=== PATIENT | female | born 1995 | race Two or more races ===

== ENCOUNTER → 2021-11-18 | Outpatient (CLI) | payer MEDICAID ==
[2021-11-18 15:30] LABS: BASO % 0.4 % (0.0-1.0); EOS # 0.1 10^3/uL (0.0-0.5); EOS % 1.2 % (0.0-3.0); HEMATOCRIT 36.1 % (36.0-47.0); HEMOGLOBIN 12.4 g/dl (12.0-15.5); LYMPH # 1.2 10^3/uL (1.5-5.0); LYMPH % 21.2 % (24.0-44.0); MEAN CORPUSCULAR HEMOGLOBIN 32.1 pg (27.0-33.0); MEAN CORPUSCULAR HGB CONC 34.3 g/dl (32.0-36.5); MEAN CORPUSCULAR VOLUME 93.5 fl (80.0-96.0); MONO # 0.5 10^3/uL (0.0-0.8); MONO % 7.9 % (2.0-8.0); NEUTROPHILS # 3.9 10^3/uL (1.5-8.5); NEUTROPHILS % 68.8 % (36.0-66.0); PLATELET COUNT, AUTOMATED 188 10^3/uL (150-450); RED BLOOD COUNT 3.86 10^6/uL (4.00-5.40); WHITE BLOOD COUNT 5.7 10^3/uL (4.0-10.0)
[2021-11-18 16:46] LABS: HIV 1&2 SCREEN CENTAUR NEGATIVE (NEGATIVE)
[2021-11-18 16:47] LABS: GC DNA AMPLIFICATION NEGATIVE (NEGATIVE)
== END ==
LOC: M PLALAB 11:29
PROVIDERS: ATTEND Specialist
DX: Z34.82 Encounter for supervision of other normal pregnancy, second trimester (principal); Z3A.00 Weeks of gestation of pregnancy not specified

== ENCOUNTER → 2021-12-09 | Outpatient (CLI) | payer MEDICAID | LOC: M WHC 07:08 | PROVIDERS: ATTEND Obstetrics & Gynecology | DX: Z34.03 Encounter for supervision of normal first pregnancy, third trimester (principal); Z3A.30 30 weeks gestation of pregnancy ==

== ENCOUNTER → 2021-12-15 | Outpatient (CLI) | payer MEDICAID ==
[2021-12-15 13:48] LABS: HEMATOCRIT 32.5 % (36.0-47.0); HEMOGLOBIN 11.1 g/dl (12.0-15.5); MEAN CORPUSCULAR HGB CONC 34.2 g/dl (32.0-36.5); MEAN CORPUSCULAR VOLUME 93.7 fl (80.0-96.0); PLATELET COUNT, AUTOMATED 168 10^3/uL (150-450); RED BLOOD COUNT 3.47 10^6/uL (4.00-5.40); WHITE BLOOD COUNT 5.8 10^3/uL (4.0-10.0)
== END ==
LOC: M PLALAB 08:46
PROVIDERS: ATTEND Specialist
DX: Z36.89 Encounter for other specified antenatal screening (principal)

== ENCOUNTER → 2022-01-21 | Outpatient (REF) | payer MEDICAID | LOC: M SFHCWAGY 12:43 | PROVIDERS: ATTEND Specialist | DX: Z36.85 Encounter for antenatal screening for Streptococcus B (principal); Z3A.00 Weeks of gestation of pregnancy not specified ==

== ENCOUNTER 2022-02-14 05:42 | Inpatient (IN) | payer OTHER, MEDICAID ==
[~2022-02-14] VITALS: Ht 170.2 cm; Wt 185.0 kg
[2022-02-14] VITALS (8 sets, daily range): BP systolic 112–139; BP diastolic 56–84
[2022-02-14] MEDS ORDERED: OXYTOCIN 30 UNITS IN 0.9% NaCl 500ML IV BAG (J2590) As Ordered ONE (05:49)
[2022-02-14] MEDS ORDERED: OXYTOCIN INJ 10 UNITS/ML VIAL (J2590) As Ordered ONE (05:52)
[2022-02-14] MEDS ORDERED: LIDOCAINE 1% MDV 20ML VIAL As Ordered ONE (06:05)
[2022-02-14] MEDS ORDERED: OXYTOCIN INJ 10 UNITS/ML VIAL (J2590) IM ONE (06:05)
[2022-02-14 06:17] LABS: CORD GAS ABE V -3.1; CORD GAS HCO3 V 21.2 MEQ/L; CORD GAS O2 SAT V 79.1 %; CORD GAS PCO2 V 36.3 mmHg; CORD GAS PH V 7.385 UNITS; CORD GAS PO2 V 33.1 mmHg; CORD GAS SBC V 21.4 MEQ/L; CORD GAS TCO2 V 22.3 MEQ/L
[2022-02-14] MEDS ORDERED: LIDOCAINE 1% MDV 20ML VIAL INFIL PRN (06:50)
[2022-02-14] MEDS ORDERED: ACETAMINOPHEN 500 MG TAB PO PRN (07:05)
[2022-02-14] MEDS ORDERED: DOCUSATE SODIUM 100MG CAPSULE PO PRN (07:05)
[2022-02-14] MEDS ORDERED: RHOGAM 300 MCG (1500 IU) INJ (J2790) IM SCH (07:05)
[2022-02-14] MEDS ORDERED: ANUSOL HC CREAM 30GM TOP PRN (07:05)
[2022-02-14] MEDS ORDERED: METHYLERGONOVINE MALEATE 0.2 MG TAB PO PRN (07:05)
[2022-02-14] MEDS ORDERED: ACETAMINOPHEN TAB 650MG DOSE (2X325MG) PO PRN (07:05)
[2022-02-14] MEDS: PRENATAL VITAMINS CHEWABLE TABLET PO SCH (10:04)
[2022-02-14] MEDS: IBUPROFEN 800 MG TAB PO PRN (10:05)
[2022-02-14] MEDS: IBUPROFEN 600MG TAB PO PRN (20:31)
[2022-02-15] MEDS ORDERED: UNRESOLVED CLARIFICATION ENTRY XX SCH (00:01)
[2022-02-15 06:13] VITALS: BP 113/64
[2022-02-15 06:14] VITALS: BP 113/64
[2022-02-15] MEDS: PRENATAL VITAMINS CHEWABLE TABLET PO SCH (09:01)
[2022-02-15] MEDS: IBUPROFEN 600MG TAB PO PRN ×2 (14:58→20:47)
[2022-02-15 18:00] VITALS: BP_SYST 111; BP_SYST 129; BP_DIAS 66; BP_DIAS 71
[2022-02-15] MEDS: DIBUCAINE 1% OINTMENT 30GM TOP PRN (20:49)
[2022-02-16 06:00] VITALS: BP 135/83
[2022-02-16] MEDS: PRENATAL VITAMINS CHEWABLE TABLET PO SCH (08:03)
[2022-02-16] MEDS ORDERED: MEASLES,MUMPS,RUBELLA VACCINE INJ (MMR-II) (90707) SC ONE (09:00)
[2022-02-16] MEDS: IBUPROFEN 800 MG TAB PO PRN (15:11)
[2022-02-16] MEDS: DIBUCAINE 1% OINTMENT 30GM TOP PRN (15:11)
[2022-02-16] MEDS ORDERED: IBUP-1022 PO (15:15)
[2022-02-16] MEDS ORDERED: ACET-683 PO (15:15)
== END 2022-02-16 15:45 | disposition home or self-care (01) | DRG 560 ==
LOC: M LDO 05:42 → M LDI 05:46 → M OBS 09:45
PROVIDERS: ADMIT Advanced Practice Midwife; ATTEND Advanced Practice Midwife
PROC: 10E0XZZ Delivery of Products of Conception, External Approach (ICD-10-PCS; principal; 2022-02-14)
PROC: 0HQ9XZZ Repair Perineum Skin, External Approach (ICD-10-PCS; 2022-02-14)
PROC: 10907ZC Drainage of Amniotic Fluid, Therapeutic from Products of Conception, Via Natural or Artificial Opening (ICD-10-PCS; 2022-02-14)
DX: O70.0 First degree perineal laceration during delivery (principal); Z3A.39 39 weeks gestation of pregnancy; Z37.0 Single live birth; O77.0 Labor and delivery complicated by meconium in amniotic fluid

== ENCOUNTER → 2023-03-10 | Outpatient (REF) | payer OTHER, MEDICAID ==
[~2023-03-10] MED LIST: ACET-683 PO; IBUP-1022 PO
== END ==
LOC: M SFHCWAGY 17:27
PROVIDERS: ATTEND Nurse Practitioner Family
DX: N76.0 Acute vaginitis (principal); N73.9 Female pelvic inflammatory disease, unspecified; Z12.4 Encounter for screening for malignant neoplasm of cervix

== ENCOUNTER 2023-04-09 10:59 | Outpatient (RCR) | payer OTHER | END 2023-04-12 | LOC: M OUTALCOH 10:59 | PROVIDERS: ATTEND Psychiatry & Neurology Psychiatry | DX: Z03.89 Encounter for observation for other suspected diseases and conditions ruled out (principal) ==